=== PATIENT | female | born 1975 | race Caucasian/White ===

== ENCOUNTER 2017-02-04 16:54 | Emergency (ER) | payer BC ==
[~2017-02-04] VITALS: Ht 162.6 cm; Wt 53.0 kg
[2017-02-04 18:41] LABS: HEMATOCRIT 38.8 % (36.0-46.0); MCH 32.8 PG (29.0-34.0); MCHC 34.8 G/DL (30.0-36.0); MCV 94.4 FL (83-99); MEAN PLAT.VOLUME 9.7 uM^3 (9.5-12.4); PLATELET COUNT 243 K/uL (156-360); RBC DIS.WIDTH-CV 11.5 % (11.8-14.6); RBC DIS.WIDTH-SD 39.4 % (39-53); RED BLOOD COUNT 4.11 M/uL (3.80-5.20); WHITE BLOOD COUNT 7.6 K/uL (4.1-10.2)
[2017-02-04 18:53] LABS: CHLORIDE 104 mEq/L (99-109); POTASSIUM 4.2 mEq/L (3.7-5.4); SODIUM 137 mEq/L (136-147)
[2017-02-04 18:55] LABS: GLUCOSE 86 mg/dL (70-99)
[2017-02-04 18:56] LABS: ANION GAP 8 MEQ/L (2-14); D-DIMER ELISA 0.27 mg/L FEU (< 0.57)
[2017-02-04 18:58] LABS: GFR ESTIMATE (CALCULATED) 58 mL/min/
[2017-02-04 18:59] LABS: UREA NITROGEN (BUN) 17 mg/dL (9-23)
[2017-02-04 19:04] LABS: TROP-I INTERPRETATION NEGATIVE; TROPONIN-I < 0.01 ng/mL (0.0-0.30)
[2017-02-04 20:28] VITALS: BP 112/74
== END 2017-02-04 20:29 | disposition home or self-care (01) ==
LOC: EME 16:54
PROVIDERS: Nurse Practitioner Family
DX: R00.2 Palpitations (principal); Z72.0 Tobacco use
CPT/HCPCS: 71020; 80048; 84439; 84443; 84484; 85027; 85379; 93005; 99281; 99284